=== PATIENT | female | born 1975 | race Caucasian/White ===

== ENCOUNTER → 2016-07-17 | Outpatient (CLI) | payer OTHER ==
[~2016-07-17] MED LIST: CONTRAVE1 TER PO; COREG3.125 MG PO; COREG6.25 MG PO; DEXILANT60 M1; FLEXERIL10 MG PO; FLUVOXAMINE100 MG PO; FLUVOXAMINE50 MG; HYDR12.5C PO; HYDROCODONE BIT1 T11 PO; HYOSCYAMINE0.125 M5; KLONOPIN1 MG PO; LISINOPRIL10 MG PO; MOTRIN800 MG PO; NABUMETONE500 M1 PO; NORCO 5-325 TA1 EACH PO; PREDNISONE20 MG PO; VICODIN 5/500 505 MG PO; VICODIN ES 7501 TAB PO; ZESTRIL,PRINIVI20 MG PO; ZOFRAN4 MG PO; ZOLOFT50 MG PO; [UNRECOGNIZED DRUG - OTHER]
[2016-07-17 07:03] LABS: HEMATOCRIT 40.6 % (37.0-47.0); HEMOGLOBIN 13.9 g/dl (12.0-16.0); MEAN CELL VOLUME 87.7 fl (81.0-99.0); MEAN CORPUSCULAR HGB CONC 34.2 g/dl (33.0-37.0); MEAN PLATELET VOLUME 10.1 fl (9.6-12.3); RED BLOOD COUNT 4.63 10*6/uL (4.10-5.10); RED CELL DISTRI WIDTH 13.2 % (0-14.5); WHITE BLOOD COUNT 7.9 10*3/uL (4.8-10.8)
[2016-07-17 07:34] LABS: ALBUMIN 3.5 gm/dl (3.1-4.5); BUN 12 mg/dl (7-24); C-REACTIVE PROTEIN 1.65 MG/DL (0-0.3); CARBON DIOXIDE 25 mmol/L (21-32); CHLORIDE 104 mmol/L (98-107); CHOLESTEROL 132 mg/dL (<200); CPK 64 U/L (26-192); EST GLOM FILT AFRICAN AMERICAN > 60 ml/min; GLUCOSE 100 mg/dL (65-99); POTASSIUM 3.8 mmol/L (3.5-5.1); SGOT/AST 19 IU/L (3-35); SGPT/ALT 40 U/L (12-78); SODIUM 139 mmol/L (136-145); TRIGLYCERIDES 85 mg/dl (<150); VLDL CHOLESTEROL 17 mg/dL (6-40)
[2016-07-17 07:43] LABS: ALKALINE PHOSPHATASE 77 U/L (45-117); BILIRUBIN, TOTAL 0.4 mg/dl (0.2-1.0); HDL CHOLESTEROL 70 mg/dl (40-60); LDL CHOLESTEROL 45 mg/dL (9-159); TOTAL PROTEIN 7.5 gm/dL (6.4-8.2)
[2016-07-17 09:38] LABS: VITAMIN D, 25-HYDROXY 17.3 ng/mL (30-100)
[2016-07-18 08:10] LABS: IMMUNOGLOBULIN IgE 002170 95 IU/mL (0-100)
[2016-07-18 09:12] LABS: RHEUMATOID ARTHRITIS FACTOR <10.0 IU/mL (0.0-13.9)
[2016-07-18 15:09] LABS: LYME AB/TOTAL IMMUNOGLOBULINS <0.91 ISR (0.00-0.90)
== END | disposition home or self-care (01) ==
LOC: LAB 06:26
PROVIDERS: Family Medicine
DX: J04.0 Acute laryngitis (principal); R53.83 Other fatigue; M25.50 Pain in unspecified joint

== ENCOUNTER → 2016-10-21 | Outpatient (CLI) | payer OTHER ==
--- NOTE | ~2016-10-21 | HM ---
[place], [place] HOLTER MONITOR REPORT NAME: JESUS FLORENCE UNIT #: [id number] ROOM: DOCTOR: KELLY FLORES MD BIRTHDATE: [birth year] DOS: PROCEDURE: A 24-hour Holter monitor was obtained beginning 10/21 through 10/22/2016. FINDINGS: The basic rhythm was normal sinus. Average heart rate was 89. Heart rate in sinus rhythm varied from 60 beats per minute at 7:31 a.m. to 146 beats per minute at 941 p.m. A 24 ventricular ectopic beats were recorded. There was one couplet, but no ventricular tachycardia was seen. A 64 premature atrial contractions were recorded. There was no SVT and only one atrial pair. No prolonged pauses were noted. The patient did not return a diary. IMPRESSION: Normal sinus rhythm with normal heart rate variation. No pathologic arrhythmias were recorded. KELLY FLORES MD CM:HOLTER:HOLTER MONITOR REPORT [id number] KELLY FLORES MD
== END | disposition home or self-care (01) ==
LOC: CARD 09:49
DX: R00.2 Palpitations (principal); R42 Dizziness and giddiness

== ENCOUNTER 2017-01-30 19:16 | Emergency (ER) | payer OTHER ==
[~2017-01-30] VITALS: Ht 157.4 cm; Wt 90.7 kg
[2017-01-30] MEDS ORDERED: ZESTRIL10 MG PO (22:39)
== END 2017-01-30 22:53 | disposition home or self-care (01) ==
LOC: ED 19:16
DX: G43.909 Migraine, unspecified, not intractable, without status migrainosus (principal); I10 Essential (primary) hypertension; Z98.890 Other specified postprocedural states; Z90.710 Acquired absence of both cervix and uterus; Z79.899 Other long term (current) drug therapy; Z91.018 Allergy to other foods; Z88.4 Allergy status to anesthetic agent

== ENCOUNTER → 2017-08-30 | Outpatient (CLI) | payer OTHER ==
[~2017-08-30] MED LIST changes: +ZESTRIL10 MG PO
[2017-08-30 15:41] LABS: HEMATOCRIT 38.8 % (37.0-47.0); HEMOGLOBIN 12.8 g/dl (12.0-16.0); MEAN CELL VOLUME 92.8 fl (81.0-99.0); MEAN CORPUSCULAR HGB 30.6 pg (27.0-31.0); MEAN PLATELET VOLUME 10.2 fl (9.6-12.3); RED BLOOD COUNT 4.18 10*6/uL (4.10-5.10); RED CELL DISTRI WIDTH 13.6 % (0-14.5); WHITE BLOOD COUNT 8.2 10*3/uL (4.8-10.8)
[2017-08-30 15:55] LABS: ALBUMIN 3.4 gm/dl (3.1-4.5); ALKALINE PHOSPHATASE 101 U/L (45-117); BUN 9 mg/dl (7-24); CHLORIDE 105 mmol/L (98-107); CHOLESTEROL 127 mg/dL (<200); CREATININE 0.77 mg/dL (0.55-1.02); HDL CHOLESTEROL 54 mg/dl (40-60); LDL CHOLESTEROL 43 mg/dL (9-159); POTASSIUM 3.9 mmol/L (3.5-5.1); SGOT/AST 34 IU/L (3-35); SGPT/ALT 61 U/L (12-78); SODIUM 139 mmol/L (136-145); TOTAL PROTEIN 7.5 gm/dL (6.4-8.2); TRIGLYCERIDES 152 mg/dl (<150); VLDL CHOLESTEROL 30 mg/dL (6-40)
== END | disposition home or self-care (01) ==
LOC: LAB 15:08
PROVIDERS: Family Medicine
DX: R53.83 Other fatigue (principal); I10 Essential (primary) hypertension; R06.02 Shortness of breath; E74.9 Disorder of carbohydrate metabolism, unspecified; E78.00 Pure hypercholesterolemia, unspecified

== ENCOUNTER → 2018-06-08 | Outpatient (CLI) | payer OTHER ==
[~2018-06-08] MED LIST changes: +ASPIRIN81 M1 PO; +MULTIVITAMINS1 EAC6 PO; +VITAMIN C500 M4 PO
== END | disposition home or self-care (01) ==
LOC: RAD 10:04
DX: R06.02 Shortness of breath (principal); R09.89 Other specified symptoms and signs involving the circulatory and respiratory systems; R05 Cough; R50.9 Fever, unspecified; R11.0 Nausea

== ENCOUNTER → 2019-01-31 | Outpatient (CLI) | payer OTHER ==
[2019-01-31 07:34] LABS: HEMATOCRIT 39.5 % (37.0-47.0); HEMOGLOBIN 13.1 g/dl (12.0-16.0); MEAN CELL VOLUME 92.5 fl (81.0-99.0); MEAN CORPUSCULAR HGB 30.7 pg (27.0-31.0); MEAN CORPUSCULAR HGB CONC 33.2 g/dl (33.0-37.0); MEAN PLATELET VOLUME 10.6 fl (9.6-12.3); RED BLOOD COUNT 4.27 10*6/uL (4.10-5.10); RED CELL DISTRI WIDTH 13.1 % (0-14.5); WHITE BLOOD COUNT 7.6 10*3/uL (4.8-10.8)
[2019-01-31 07:58] LABS: ALBUMIN 3.4 gm/dl (3.1-4.5); BUN 15 mg/dl (7-24); CHLORIDE 106 mmol/L (98-107); CREATININE 0.78 mg/dL (0.55-1.02); SGOT/AST 22 IU/L (3-35); SGPT/ALT 38 U/L (12-78); SODIUM 137 mmol/L (136-145)
[2019-01-31 08:08] LABS: ALKALINE PHOSPHATASE 98 U/L (45-117); FREE T4 0.98 ng/dl (0.76-1.46); TOTAL PROTEIN 7.4 gm/dL (6.4-8.2)
[2019-01-31 10:26] LABS: VITAMIN D, 25-HYDROXY 27.3 ng/mL (30-100)
[2019-02-03 10:06] LABS: TESTOSTERONE FREE, (DIRECT) 2.1 pg/mL (0.0-4.2)
== END | disposition home or self-care (01) ==
LOC: LAB 06:45
PROVIDERS: Family Medicine
DX: E55.9 Vitamin D deficiency, unspecified (principal); R53.83 Other fatigue; R63.5 Abnormal weight gain

== ENCOUNTER → 2019-02-26 | Outpatient (CLI) | payer OTHER ==
[2019-02-26 08:54] LABS: FREE T4 0.83 ng/dl (0.76-1.46)
[2019-02-26 08:59] LABS: THYROID STIM HORMONE (HS) 1.26 uIU/ml (0.358-4.75)
[2019-03-02 01:06] LABS: NORMETANEPHRINE URINE 152 ug/L (Undefined); URINE METANEPHRINE 80 ug/L (Undefined); URINE METANEPHRINE, 24 HR 148 ug/24 hr (45-290); URINE NORMETANEPHRINE 24HR 281 ug/24 hr (82-500)
[2019-03-02 17:08] LABS: 5-HIAA, URINE 2.2 mg/L (Undefined); 5-HIAA, URINE, 24 HR 4.1 mg/24 hr (0.0-14.9); VMA, URINE 24 HR 3.7 mg/24 hr (0.0-7.5)
[2019-03-03 08:26] LABS: URINE VOLUME 1850 mL
[2019-03-03 15:54] LABS: CORTISOL, FREE URINE 19 ug/L (Undefined)
[2019-03-03 16:00] LABS: CORTISOL, FREE, UG/24HR, URINE 35
== END | disposition home or self-care (01) ==
LOC: LAB 07:45
PROVIDERS: Internal Medicine Endocrinology, Diabetes & Metabolism
DX: E24.9 Cushing's syndrome, unspecified (principal); K58.9 Irritable bowel syndrome, unspecified

== ENCOUNTER → 2019-02-27 | Outpatient (CLI) | payer OTHER ==
[2019-03-07 11:06] LABS: DOPAMINE, URINE 245 ug/L (Undefined); EPINEPHRINE, URINE 24 HR 5 ug/24 hr (0-20)
== END | disposition home or self-care (01) ==
LOC: LAB 14:29
PROVIDERS: Internal Medicine Endocrinology, Diabetes & Metabolism
DX: M79.662 Pain in left lower leg (principal); K58.9 Irritable bowel syndrome, unspecified; E24.9 Cushing's syndrome, unspecified; E03.9 Hypothyroidism, unspecified

== ENCOUNTER → 2019-10-30 | Outpatient (CLI) | payer OTHER ==
[2019-10-30 07:29] LABS: ALBUMIN 3.4 gm/dl (3.1-4.5); ALKALINE PHOSPHATASE 95 U/L (45-117); BUN 15 mg/dl (7-24); CHLORIDE 108 mmol/L (98-107); CREATININE 0.81 mg/dL (0.55-1.02); POTASSIUM 4.2 mmol/L (3.5-5.1); SGOT/AST 27 IU/L (3-35); SGPT/ALT 46 U/L (12-78); SODIUM 141 mmol/L (136-145); TOTAL PROTEIN 7.1 gm/dL (6.4-8.2)
== END | disposition home or self-care (01) ==
LOC: LAB 05:55
PROVIDERS: Family Medicine
DX: E74.9 Disorder of carbohydrate metabolism, unspecified (principal)

== ENCOUNTER → 2021-05-02 | Outpatient (CLI) | payer OTHER ==
[2021-05-02 10:08] LABS: HEMATOCRIT 39.9 % (37.0-47.0); MEAN CELL VOLUME 93.2 fl (81.0-99.0); MEAN CORPUSCULAR HGB 30.6 pg (27.0-31.0); MEAN CORPUSCULAR HGB CONC 32.8 g/dl (33.0-37.0); MEAN PLATELET VOLUME 10.1 fl (9.6-12.3); RED BLOOD COUNT 4.28 10*6/uL (4.10-5.10); RED CELL DISTRI WIDTH 13.1 % (0-14.5); WHITE BLOOD COUNT 7.7 10*3/uL (4.8-10.8)
[2021-05-02 10:29] LABS: ALBUMIN 3.1 gm/dl (3.1-4.5); ALKALINE PHOSPHATASE 109 U/L (45-117); BUN 11 mg/dl (7-24); CHLORIDE 107 mmol/L (98-107); CHOLESTEROL 121 mg/dL (<200); CREATININE 0.77 mg/dL (0.55-1.02); LDL CHOLESTEROL 47 mg/dL (9-159); POTASSIUM 3.9 mmol/L (3.5-5.1); SGOT/AST 31 IU/L (3-35); SGPT/ALT 68 U/L (12-78); SODIUM 140 mmol/L (136-145); TOTAL PROTEIN 7.2 gm/dL (6.4-8.2); TRIGLYCERIDES 59 mg/dl (<150)
== END | disposition home or self-care (01) ==
LOC: LAB 09:47
PROVIDERS: ATTEND Family Medicine
DX: Z00.00 Encounter for general adult medical examination without abnormal findings (principal); I10 Essential (primary) hypertension; E55.9 Vitamin D deficiency, unspecified; E74.00 Glycogen storage disease, unspecified; F41.1 Generalized anxiety disorder; R06.02 Shortness of breath

== ENCOUNTER → 2022-05-05 | Outpatient (CLI) | payer OTHER ==
[2022-05-05 07:47] LABS: HEMATOCRIT 40.7 % (37.0-47.0); MEAN CELL VOLUME 93.3 fl (81.0-99.0); MEAN CORPUSCULAR HGB 30.7 pg (27.0-31.0); MEAN CORPUSCULAR HGB CONC 32.9 g/dl (33.0-37.0); RED BLOOD COUNT 4.36 10*6/uL (4.10-5.10); RED CELL DISTRI WIDTH 13.2 % (0-14.5); WHITE BLOOD COUNT 7.2 10*3/uL (4.8-10.8)
[2022-05-05 08:07] LABS: ALKALINE PHOSPHATASE 75 U/L (46-116); BUN 12 mg/dl (9-23); CHLORIDE 104 mmol/L (98-107); CHOLESTEROL 130 mg/dL (<200); LDL CHOLESTEROL 51 mg/dL (9-159); POTASSIUM 4.2 mmol/L (3.4-5.1); SGPT/ALT 31 U/L (10-49); TRIGLYCERIDES 73 mg/dl (<150)
[2022-05-05 08:50] LABS: VITAMIN D, 25-HYDROXY 39.4 ng/mL (30-100)
== END | disposition home or self-care (01) ==
LOC: LAB 07:23
PROVIDERS: ATTEND Family Medicine
DX: E55.9 Vitamin D deficiency, unspecified (principal); E74.9 Disorder of carbohydrate metabolism, unspecified; R60.0 Localized edema; K21.9 Gastro-esophageal reflux disease without esophagitis

== ENCOUNTER → 2022-09-11 | Outpatient (CLI) | payer OTHER ==
[2022-09-11 08:02] LABS: BASO % 0.5 % (0.0-1.0); EOS # 0.1 10*3/uL (0.0-0.4); EOS % 1.6 % (1.0-4.0); HEMATOCRIT 41.9 % (37.0-47.0); LYMPH % 32.8 % (27.0-41.0); MEAN CORPUSCULAR HGB 30.4 pg (27.0-31.0); MEAN PLATELET VOLUME 10.3 fl (9.6-12.3); MONO # 0.4 10*3/uL (0.1-1.0); MONO % 6.7 % (3.0-9.0); NEUT # 3.6 10*3/uL (2.3-7.9); NEUT % 58.2 % (47.0-73.0); PLATELET COUNT AUTOMATED 226 10*3/uL (130-400); RED BLOOD COUNT 4.41 10*6/uL (4.10-5.10); RED CELL DISTRI WIDTH 13.3 % (0-14.5); WHITE BLOOD COUNT 6.2 10*3/uL (4.8-10.8)
[2022-09-11 08:21] LABS: ACT PARTIAL THROMBO TIME 28.8 SECONDS (20.0-32.1)
[2022-09-11 08:30] LABS: ALKALINE PHOSPHATASE 98 U/L (46-116); BUN 12 mg/dl (9-23); CHLORIDE 106 mmol/L (98-107); CHOLESTEROL 104 mg/dL (<200); LDL CHOLESTEROL 44 mg/dL (9-159); SGPT/ALT 49 U/L (10-49); THYROID STIM HORMONE (HS) 2.582 uIU/ml (0.550-4.780); TOTAL PROTEIN 7.3 gm/dL (6.0-8.0); TRIGLYCERIDES 48 mg/dl (<150)
[2022-09-11 08:49] LABS: VITAMIN D, 25-HYDROXY 81.2 ng/mL (30-100)
== END | disposition home or self-care (01) ==
LOC: LAB 07:37
DX: I47.1 Supraventricular tachycardia (principal); I10 Essential (primary) hypertension; E28.2 Polycystic ovarian syndrome; R06.83 Snoring; E66.01 Morbid (severe) obesity due to excess calories; Z68.41 Body mass index [BMI] 40.0-44.9, adult

== ENCOUNTER → 2022-11-27 | Outpatient (CLI) | payer OTHER ==
[2022-11-27 08:21] LABS: HEMATOCRIT 40.5 % (37.0-47.0); MEAN CELL VOLUME 90.4 fl (81.0-99.0); MEAN CORPUSCULAR HGB 30.4 pg (27.0-31.0); MEAN CORPUSCULAR HGB CONC 33.6 g/dl (33.0-37.0); RED BLOOD COUNT 4.48 10*6/uL (4.10-5.10); WHITE BLOOD COUNT 6.7 10*3/uL (4.8-10.8)
[2022-11-27 09:01] LABS: ALKALINE PHOSPHATASE 81 U/L (46-116); BUN 12 mg/dl (9-23); CHLORIDE 103 mmol/L (98-107); CHOLESTEROL 121 mg/dL (<200); LDL CHOLESTEROL 53 mg/dL (9-159); SGPT/ALT 35 U/L (10-49); TOTAL PROTEIN 7.2 gm/dL (6.0-8.0); TRIGLYCERIDES 75 mg/dl (<150)
== END | disposition home or self-care (01) ==
LOC: LAB 08:02
PROVIDERS: ATTEND Family Medicine
DX: Z01.818 Encounter for other preprocedural examination (principal); Z79.899 Other long term (current) drug therapy; E78.00 Pure hypercholesterolemia, unspecified

== ENCOUNTER → 2023-01-02 | Outpatient (CLI) | payer OTHER ==
[2023-01-02 10:36] LABS: HEMATOCRIT 42.1 % (37.0-47.0); MEAN CELL VOLUME 90.9 fl (81.0-99.0); MEAN CORPUSCULAR HGB 30.5 pg (27.0-31.0); MEAN CORPUSCULAR HGB CONC 33.5 g/dl (33.0-37.0); RED BLOOD COUNT 4.63 10*6/uL (4.10-5.10); RED CELL DISTRI WIDTH 13.3 % (0-14.5); WHITE BLOOD COUNT 4.8 10*3/uL (4.8-10.8)
[2023-01-02 10:57] LABS: ALKALINE PHOSPHATASE 57 U/L (46-116); BUN 9 mg/dl (9-23); CHLORIDE 105 mmol/L (98-107); POTASSIUM 4.1 mmol/L (3.4-5.1); SGPT/ALT 53 U/L (10-49); TOTAL PROTEIN 7.1 gm/dL (6.0-8.0)
== END | disposition home or self-care (01) ==
LOC: LAB 10:14
PROVIDERS: ATTEND Family Medicine
DX: R53.83 Other fatigue (principal); E86.0 Dehydration; Z98.84 Bariatric surgery status

== ENCOUNTER → 2023-06-15 | Outpatient (CLI) | payer OTHER ==
[2023-06-15 08:41] LABS: ALKALINE PHOSPHATASE 76 U/L (46-116); BUN 14 mg/dl (9-23); CHLORIDE 106 mmol/L (98-107); POTASSIUM 3.7 mmol/L (3.4-5.1); SGPT/ALT 34 U/L (5-49)
[2023-06-15 08:55] LABS: VITAMIN D, 25-HYDROXY 84.4 ng/mL (30-100)
== END | disposition home or self-care (01) ==
LOC: LAB 07:11
PROVIDERS: ATTEND Family Medicine
DX: I10 Essential (primary) hypertension (principal); E55.9 Vitamin D deficiency, unspecified; K21.9 Gastro-esophageal reflux disease without esophagitis; I25.10 Atherosclerotic heart disease of native coronary artery without angina pectoris; G47.33 Obstructive sleep apnea (adult) (pediatric)

== ENCOUNTER → 2023-12-11 | Outpatient (CLI) | payer OTHER ==
[2023-12-11 08:27] LABS: BASO % 0.6 % (0.0-1.0); EOS # 0.1 10*3/uL (0.0-0.4); EOS % 1.5 % (1.0-4.0); HEMATOCRIT 40.3 % (37.0-47.0); LYMPH # 1.7 10*3/uL (1.3-4.4); LYMPH % 36.6 % (27.0-41.0); MEAN CELL VOLUME 91.6 fl (81.0-99.0); MEAN CORPUSCULAR HGB 29.8 pg (27.0-31.0); MEAN CORPUSCULAR HGB CONC 32.5 g/dl (33.0-37.0); MEAN PLATELET VOLUME 9.9 fl (9.6-12.3); MONO # 0.3 10*3/uL (0.1-1.0); MONO % 6.9 % (3.0-9.0); NEUT # 2.6 10*3/uL (2.3-7.9); NEUT % 54.2 % (47.0-73.0); PLATELET COUNT AUTOMATED 208 10*3/uL (130-400); RED CELL DISTRI WIDTH 12.7 % (0-14.5); WHITE BLOOD COUNT 4.8 10*3/uL (4.8-10.8)
== END | disposition home or self-care (01) ==
LOC: LAB 07:43
PROVIDERS: Surgery; ATTEND Family Medicine
DX: Z00.8 Encounter for other general examination (principal); E55.9 Vitamin D deficiency, unspecified; K21.9 Gastro-esophageal reflux disease without esophagitis; K91.2 Postsurgical malabsorption, not elsewhere classified

== ENCOUNTER → 2024-02-11 | Outpatient (CLI) | payer OTHER ==
[2024-02-11 08:32] LABS: FREE T4 1.22 ng/dl (0.89-1.76)
== END | disposition home or self-care (01) ==
LOC: LAB 07:35 → EDSTATUS 07:37
PROVIDERS: ATTEND Family Medicine
DX: K21.9 Gastro-esophageal reflux disease without esophagitis (principal); L68.0 Hirsutism; R00.2 Palpitations; E74.00 Glycogen storage disease, unspecified; F41.1 Generalized anxiety disorder; N95.8 Other specified menopausal and perimenopausal disorders